=== PATIENT | male | born 1950 | race Caucasian/White ===

== ENCOUNTER → 2017-10-16 08:09 | Day surgery (SDC) | payer OTHER ==
[2017-10-16 09:08] LABS: EGFR Non-African American 44.6 (>60)
== END | disposition home or self-care (01) ==
LOC: CHICATH 08:09
PROVIDERS: ATTEND Internal Medicine Cardiovascular Disease
DX: R94.39 Abnormal result of other cardiovascular function study (principal); Z53.09 Procedure and treatment not carried out because of other contraindication; I35.0 Nonrheumatic aortic (valve) stenosis; E78.5 Hyperlipidemia, unspecified; R06.02 Shortness of breath; Z82.49 Family history of ischemic heart disease and other diseases of the circulatory system; E11.9 Type 2 diabetes mellitus without complications; Z79.4 Long term (current) use of insulin; Z87.891 Personal history of nicotine dependence; N18.9 Chronic kidney disease, unspecified
CPT/HCPCS: 36415; 80048

== ENCOUNTER → 2017-10-22 08:20 | Day surgery (SDC) | payer OTHER ==
[~2017-10-22 08:20] MED LIST: Heparin 2 UNITS/ML IVPREMIX* 3,000 ML IV ONE; Iodixanol* (CONTRAST) 320 MG/ML 100 ML SDV ONE; Lidocaine 1% INJ* 10 MG/ML 30 ML SDV ONE; Midazolam* 1 MG/ML 10 ML VIAL (10 MG) ONE; NS 0.9% 1000 ML* 1,000 ML IV SCH; fentaNYL* 50 MCG/ML 2 ML VIAL (100 MCG VIAL) ONE
[2017-10-22 15:22] VITALS: BP 127/63
--- NOTE | 2017-10-24 00:37 | CATH ---
CC: Dr. Emma Chawla; Dr. Omar Katz * CARDIAC CATHETERIZATION REPORT: DATE OF PROCEDURE: 10/22/17 - [facility] CATH INDICATION FOR PROCEDURE: Asked by Dr. Emma Chawla to perform diagnostic and possible intervention on the patient with a history of moderate aortic stenosis and shortness of breath with exertion with an abnormal regular exercise stress test with shortness of breath with exercise and ST segment baseline changes with significant depression in the inferior leads persisting into late recovery. PROCEDURE: Coronary arteriography, left heart catheterization. DESCRIPTION OF PROCEDURE: The patient was interviewed and examined in the holding area of the computer laboratory technician where the risks and benefits were explained. He understood them and wished to proceed. The patient was brought into the cardiovascular laboratory where a formal time- out was performed. The right radial artery had already been assessed in the holding area and found to be too small for an approach with calcium present. As such, the right femoral artery approach was utilized. He was prepped and draped in sterile fashion. Right groin area was anesthetized with 1% lidocaine. Right femoral artery was cannulated and a 5-Swedish introducer was placed. Coronary arteriography was performed using a 5-Swedish 4 Luciana left coronary catheter and 5-Swedish 4 Luciana right coronary catheter. Central aortic pressure was recorded using an angled pigtail catheter advanced into the ascending aorta. The catheter was then passed across the aortic valve utilizing assistance with a straight wire. Left ventricular pressure was recorded, pullback was then performed. Following this, the catheter was removed. The sheath was removed manually in the holding area with local pressure for hemostasis. The total contrast used was 55 cc of Omnipaque dye. The radiation exposure included 8.5 minutes of fluoro time. The air kerma radiation was 548 milligray. The DAP radiation was 3738 microgray per meter squared. RESULTS: HEMODYNAMIC DATA: Central aortic pressure recorded at 120/60 with a mean of 88. Left ventricular pressure 146 over left ventricular end-diastolic pressure of 23. Peak aortic gradient was noted to be 26 mmHg. CORONARY ARTERIOGRAPHY: A. Left coronary artery: 1. Left main - widely patent, short in nature. There was no significant obstruction noted. 2. Left anterior descending artery - there was tapering of the proximal left anterior descending artery into the segment just after the first septal engineer first assistant. The degree of luminal reduction was noted to be approximately 50% to 55%. The size of the artery at the point of obstruction compared to passed it was much less in caliber. The continuation of the LAD supplied multiple diagonal branches. The distal portion had a 45% to 50% obstruction seen just at the apex of the heart. It supplied blood flow on to the distal inferior wall. The diagonal branches were somewhat small in caliber, especially the distal ones, appearing well under 1.7 mm. 3. Circumflex artery - a nondominant vessel supplying a small caliber trifurcation marginal branch, which had minimal 20% proximal narrowing. The proximal portion of the circumflex had a 20% narrowing. The circumflex supplied a mid bifurcating obtuse marginal branch continuing on to supply several low lying posterior left ventricular branches. There were mild luminal irregularities, but no significant obstruction noted throughout the circumflex system. B. Right coronary artery - a dominant vessel supplying a bifurcating PDA and a very thin, short first posterior left ventricular branch. There was a mild 35% obstruction seen in the mid portion of the right coronary artery. Of note, the PDA itself did not extend fully to the distal inferior wall, which was supplied by the left anterior descending artery. OVERALL ASSESSMENT: Moderate coronary artery disease involving the mid LAD just after the first septal engineer first assistant and distal LAD as described above. Mild disease in the right coronary artery and circumflex artery. Increased left ventricular end- diastolic pressure noted with suggestion of moderate aortic stenosis with peak to peak gradient of 26 mmHg. This information was shared with Dr. Emma Chawla , who will be involved with ongoing management of this patient. Consideration for repeat echocardiogram to reassess the aortic valve and LV function will be at the discretion of Dr. Emma Chawla. [id number] #: [id number] [place]
== END | disposition home or self-care (01) ==
LOC: CHICATH 08:20
PROVIDERS: ATTEND Internal Medicine Cardiovascular Disease
DX: I35.0 Nonrheumatic aortic (valve) stenosis (principal); I25.10 Atherosclerotic heart disease of native coronary artery without angina pectoris; R06.02 Shortness of breath; R94.39 Abnormal result of other cardiovascular function study; E11.9 Type 2 diabetes mellitus without complications; Z79.4 Long term (current) use of insulin; I10 Essential (primary) hypertension; E78.5 Hyperlipidemia, unspecified; G47.33 Obstructive sleep apnea (adult) (pediatric); Z87.891 Personal history of nicotine dependence; Z82.49 Family history of ischemic heart disease and other diseases of the circulatory system
CPT/HCPCS: 93458; C1769; C1887; J1644; J2250; J3010